=== PATIENT | female | born 1950 | race Caucasian/White ===

== ENCOUNTER 2020-12-27 05:25 | Day surgery (SDC) | payer OTHER, BC ==
[2020-12-22 16:00] VITALS: BMI 29.0
[2020-12-27 11:40] VITALS: TEMP 97.1
[2020-12-27 12:42] VITALS: BP 128/72; PULSE 68
== END 2020-12-27 12:40 | disposition home or self-care (01) ==
LOC: JASU-ENDO 05:25
PROVIDERS: ATTEND Internal Medicine Gastroenterology
PROC: 0DBL8ZX Excision of Transverse Colon, Via Natural or Artificial Opening Endoscopic, Diagnostic (ICD-10-PCS; 2020-12-27)
PROC: 0DBK8ZX Excision of Ascending Colon, Via Natural or Artificial Opening Endoscopic, Diagnostic (ICD-10-PCS; principal; 2020-12-27 11:11)
DX: D12.2 Benign neoplasm of ascending colon (principal); D12.3 Benign neoplasm of transverse colon; K57.30 Diverticulosis of large intestine without perforation or abscess without bleeding; Z88.6 Allergy status to analgesic agent; Z88.5 Allergy status to narcotic agent; R10.32 Left lower quadrant pain; R19.4 Change in bowel habit
CPT/HCPCS: 88305-TC

== ENCOUNTER 2021-08-05 06:00 | Day surgery (SDC) | payer OTHER, BC ==
[2021-08-04 12:19] VITALS: BMI 28.8
[2021-08-05] MEDS ORDERED: EPINEPHrine 1:1,000 1 MG/1 ML - 30ML VIAL (INJECTION) ONE (07:16)
[2021-08-05] MEDS ORDERED: BUPIVACAINE HCL/PF 2.5 MG/ML - 30 ML VIAL IJ ONE (07:16)
[2021-08-05] MEDS ORDERED: PROPOFOL 20 ML ONE (07:19)
[2021-08-05] MEDS ORDERED: MIDAZOLAM HCL 2 MG/2 ML SINGLE DOSE VIAL ONE (07:19)
[2021-08-05] MEDS ORDERED: SCOPOLAMINE HYDROBROMIDE 1 PATCH PATCH.TD72 ONE (07:25)
[2021-08-05] MEDS ORDERED: traMADol HCL 50 MG TABLET PO ONE (07:34)
[2021-08-05] MEDS ORDERED: ONDANSETRON 4 MG/2 ML VIAL IVPUSH PRN (07:34)
[2021-08-05] MEDS ORDERED: ACETAMINOPHEN INJECTION 100 ML IVPB ONE (07:35)
[2021-08-05] MEDS ORDERED: LACTATED RINGERS SOLUTION 1,000 ML IV SCH (07:45)
[2021-08-05] MEDS ORDERED: DEXAMETHASONE SOD PHOSPHATE 4 MG/1 ML VIAL ONE (07:58)
[2021-08-05] MEDS ORDERED: ONDANSETRON 4 MG/2 ML VIAL ONE ×2 (07:58→09:39)
[2021-08-05] MEDS ORDERED: ceFAZolin SODIUM 1 GM VIAL ONE (07:59)
[2021-08-05] MEDS ORDERED: KETOROLAC TROMETHAMINE 30 MG/1 ML VIAL ONE (08:15)
[2021-08-05] MEDS ORDERED: traMADol HCL 50 MG TABLET ONE (09:32)
[2021-08-05 09:53] VITALS: TEMP 97.8
[2021-08-05 11:15] VITALS: BP 161/97; PULSE 76
== END 2021-08-05 11:10 | disposition home or self-care (01) ==
LOC: FASU 06:00
PROVIDERS: ATTEND Orthopaedic Surgery
PROC: 0SBC4ZZ Excision of Right Knee Joint, Percutaneous Endoscopic Approach (ICD-10-PCS; 2021-08-05)
PROC: 0SBC4ZZ Excision of Right Knee Joint, Percutaneous Endoscopic Approach (ICD-10-PCS; principal; 2021-08-05 08:08)
DX: S83.241A Other tear of medial meniscus, current injury, right knee, initial encounter (principal); S83.281A Other tear of lateral meniscus, current injury, right knee, initial encounter; S83.8X1A Sprain of other specified parts of right knee, initial encounter; M65.861 Other synovitis and tenosynovitis, right lower leg; X58.XXXA Exposure to other specified factors, initial encounter; Y93.9 Activity, unspecified; Y92.9 Unspecified place or not applicable
CPT/HCPCS: 94760; J0131